=== PATIENT | female | born 1965 | race African-American/Black ===

== ENCOUNTER 2017-08-02 19:25 | Emergency (ER) | payer SELFPAY ==
[2017-08-02] MEDS ORDERED: HYDROcodone/Acetaminophen 5/325 mg Tablet ONE (19:56)
--- NOTE | 2017-08-02 20:22 | RAD ---
LEFT FOOT THREE VIEWS: 08/02/17 HISTORY: Foot pain and heel pain. There is some minimal bony change involving the medial side of the first metatarsal head. I cannot e xclude these changes being related to gout. Calcaneal spur at the insertion of the Achilles tendon i s noted. IMPRESSION: No acute findings. Other findings as noted above. POS: [facility]
== END 2017-08-02 20:52 | disposition home or self-care (01) ==
LOC: NAV ERS 19:25
DX: M76.62 Achilles tendinitis, left leg (principal); E78.5 Hyperlipidemia, unspecified; I25.10 Atherosclerotic heart disease of native coronary artery without angina pectoris; I10 Essential (primary) hypertension; E66.9 Obesity, unspecified; F17.210 Nicotine dependence, cigarettes, uncomplicated

== ENCOUNTER 2018-01-22 17:41 | Observation (INO) | payer SELFPAY ==
[2018-01-22] MEDS ORDERED: Sodium Chloride 0.9% 1,000 ML ONE ×2 (18:31→20:57)
[2018-01-22 18:34] LABS: #Basophils 0.1 thou/uL (0.0-0.2); #Eosinphils 0.1 thou/uL (0.0-0.7); #Lymphocytes 1.4 thou/uL (1.20-3.40); #Monocytes 0.5 thou/uL (0.11-0.59); #Neutrophils 3.2 thou/uL (1.40-6.50); %Basophils 2.2 % (0.0-1.0); %Eosinophils 1.3 % (0.0-10.0); %Lymphocytes 26.5 % (21.0-51.0); Hemoglobin 13.8 g/dL (12.0-16.0); Mean Corpuscular HGB CONC 31.6 g/dL (32.0-36.0); Mean Corpuscular Volume 88.7 fl (81.0-99.0); Platelet Count 218 thou/uL (130-400); Red Blood Cell (RBC) Count 4.94 mill/uL (4.20-5.40); White Blood Cell (WBC) Count 5.3 thou/uL (4.8-10.8)
[2018-01-22 18:47] LABS: ALT (SGPT) 21 U/L (8-55); AST (SGOT) 13 U/L (5-34); Alkaline Phosphatase 111 U/L (40-150); Anion Gap 22 mmol/L (10-20); BUN (Urea Nitrogen) 12 mg/dL (9.8-20.1); Bilirubin, Total 0.4 mg/dL (0.2-1.2); CK (CPK) 98 U/L (29-168); Calc. Creatinine Clearance 0 mL/min (70-130); Calcium 9.6 mg/dL (7.8-10.44); Carbon Dioxide 11 mmol/L (22-29); Chloride 100 mmol/L (98-107); Estimated GFR-MDRD 54; Globulin 3.6 g/dL (2.4-3.5); Protein, Total 7.6 g/dL (6.0-8.3); Sodium 129 mmol/L (136-145)
[2018-01-22 18:49] LABS: CKMB 3.7 ng/mL (0-6.6); Troponin I Less than 0.010 ng/mL (< 0.028)
[2018-01-22 18:50] LABS: Glucose 617 mg/dL (70-105)
[2018-01-22] MEDS ORDERED: Insulin Regular 300 UNITS/3 ML VIAL ONE (18:50)
--- NOTE | 2018-01-22 20:30 | CT ---
HEAD CT NONCONTRAST: 01/22/18 CLINICAL HISTORY: Emergency exam performed for dizziness and hyperglycemia. FINDINGS: There is no evidence of intracranial hemorrhage, mass effect, midline shift or ventriculomegaly. Ther e are basal ganglia calcifications bilaterally. There is no acute fluid level of the imaged paranasal sinuses. IMPRESSION: No acute intracranial abnormalities. POS: [facility]
--- NOTE | 2018-01-22 20:33 | RAD ---
FRONTAL VIEW CHEST: 01/22/18 CLINICAL HISTORY: Dizziness, hyperglycemia. FINDINGS: Mild enlargement of the cardiac silhouette and pulmonary vasculature. Prior right subclavian venous c atheter has been removed. No effusion or pneumothorax. Evidence of prior sternotomy. Mild bilateral p atchy perihilar opacity seen. IMPRESSION: Findings most consistent with fluid overload from CHF. Correlate clinically. Imaging followup may be obtained, as necessary. POS: [facility]
[2018-01-22 20:39] LABS: pH (venous) 7.29 (7.35-7.45)
[2018-01-22 20:40] LABS: Base Excess -10.3 mEq/L (-2 - +2)
[2018-01-22 20:41] LABS: Hemoglobin (Hb) 14.1 g/dL (11.7-16.0)
[2018-01-22 20:47] LABS: Anion Gap 18 mmol/L (10-20); BUN (Urea Nitrogen) 11 mg/dL (9.8-20.1); Calc. Creatinine Clearance 0 mL/min (70-130); Calcium 9.3 mg/dL (7.8-10.44); Carbon Dioxide 14 mmol/L (22-29); Chloride 106 mmol/L (98-107); Estimated GFR-MDRD 67; Glucose 332 mg/dL (70-105); Potassium 3.5 mmol/L (3.5-5.1); Sodium 134 mmol/L (136-145)
[2018-01-22 20:56] LABS: Bilirubin Small (Negative); Blood, Urine Small (Negative); Clarity Clear (Clear); Glucose, Urine (Dipstick) 500 mg/dL (Negative); Leukocyte Negative (Negative); Nitrite Negative (Negative); Protein, Urine (Dipstick) 30 mg/dL (Neg-Trace); Urobilinogen 0.2 mg/dL (0.2-1.0)
[2018-01-22 21:06] LABS: RBC/HPF 0-3 HPF (0-3)
[2018-01-22 21:07] LABS: Squamous Epithelial 0-3 HPF (0-3)
[2018-01-22] MEDS ORDERED: metFORMIN 500 MG TAB PO SCH (22:45)
[2018-01-22] MEDS ORDERED: Dextrose 5% in Water 1,000 ML IV PRN (22:50)
[2018-01-22] MEDS ORDERED: Dextrose 50% Abboject 50 ML SYRINGE IVP PRN (22:50)
[2018-01-22] MEDS: NS 0.9% w/ 20 MEQ KCL 1,000 ML IV SCH (23:31)
[2018-01-23 05:48] LABS: Band 2 % (5-11); Eosinophils 2 % (0-10); Hemoglobin 12.4 g/dL (12.0-16.0); Lymphocytes 33 % (21-51); MDiff Complete? YES; Mean Corpuscular HGB CONC 32.8 g/dL (32.0-36.0); Mean Corpuscular Hemoglobin 28.6 pg (27.0-31.0); Mean Corpuscular Volume 87.1 fl (81.0-99.0); Mean Platelet Volume 9.4 fL (7.4-10.4); Monocytes 9 % (0-10); Neutrophil 52 % (42-75); Platelet Count 186 thou/uL (130-400); RBC Distribution Width 11.9 % (11.5-14.5); Reactive Lymphocytes 2 % (0-10); Red Blood Cell (RBC) Count 4.35 mill/uL (4.20-5.40); White Blood Cell (WBC) Count 5.1 thou/uL (4.8-10.8)
[2018-01-23 05:52] LABS: Anion Gap 16 mmol/L (10-20); BUN (Urea Nitrogen) 12 mg/dL (9.8-20.1); Calc. Creatinine Clearance 104 mL/min (70-130); Calcium 9.1 mg/dL (7.8-10.44); Carbon Dioxide 14 mmol/L (22-29); Chloride 107 mmol/L (98-107); Estimated GFR-MDRD 75; Glucose 328 mg/dL (70-105); Potassium 3.8 mmol/L (3.5-5.1); Sodium 133 mmol/L (136-145)
[2018-01-23] MEDS: Insulin Regular 300 UNITS/3 ML VIAL SC PRN ×3 (06:46→17:29)
[2018-01-23] MEDS: metFORMIN 500 MG TAB PO SCH ×2 (08:03→17:27)
[2018-01-23] MEDS ORDERED: Prevnar 13-Val Conj/PF 0.5 ML SYRINGE IM ONE (09:00)
[2018-01-23] MEDS: NS 0.9% w/ 20 MEQ KCL 1,000 ML IV SCH ×2 (10:55→17:43)
[2018-01-23 14:31] VITALS: BMI 32.7
[2018-01-23] MEDS ORDERED: metFORMIN 500 MG TAB PO SCH (17:15)
[2018-01-23 20:23] VITALS: BP 110/61; TEMP 98.1
[2018-01-23] MEDS ORDERED: Simvastatin 40 MG TAB PO SCH (21:00)
--- NOTE | 2018-01-24 00:30 | DIS ---
DATE OF ADMISSION: 01/22/2018 DATE OF DISCHARGE: 01/23/2018 PRINCIPAL DIAGNOSIS: New onset diabetes mellitus. SECONDARY DIAGNOSES: 1. Coronary artery disease, status post coronary artery bypass grafting x1 of the left anterior desc ending with left internal mammary artery. 2. Hypertension. 3. Dyslipidemia. 4. Longstanding history of noncompliance. COMPLICATIONS: None. ADVERSE REACTIONS: None. PROCEDURES: None. CONSULTATIONS: None. HOSPITAL COURSE: The patient was admitted yesterday with complaints of lightheadedness and dizziness . She was evaluated in the emergency room, was noticed to have a blood sugar greater than 500. She was treated with IV fluids and IV insulin. She responded well. Blood sugars came down to 300. Anio n gap was normal. Urine apparently was tested and was ketone negative according to the ER physician, it was felt that, best to admit her to the hospital overnight for observation on sliding scale, star lalo her on metformin and monitor. She had education from the dietitian today along with the nurses o n diet, activity, and compliance with medications. I had a long discussion with her. She assured me that she will be compliant with medications. Her significant other is in the room. I advised them, they need to walk at least 30 minutes a day. We will follow the dietitian's recommendations. Check her blood sugar 3 times a day. I am going to add Amaryl 1 mg b.i.d. to her metformin and then she i s to follow up with her new primary care physician. She apparently has an appointment at the [facility] in the next 3-5 days. She is to take her blood sugar glucometer with her along with her medi cations. She was advised to come back to the emergency room with any issues. PAST SURGICAL HISTORY: 1. Coronary artery bypass grafting. 2. Cholecystectomy. 3. History of . HOME MEDICATIONS: She apparently was taking Imdur 60 mg daily, Zocor 40 mg daily, losartan 25 mg alison ly, and aspirin 325 mg daily. FAMILY HISTORY: She states that she quit smoking about a couple of weeks ago, I am not sure how true that is. She drinks occasional wine. No recreational drug use. ALLERGIES: PENICILLIN. REVIEW OF SYSTEMS: Cardiovascular: Denies any chest pain, shortness of breath, palpitations, PND, o rthopnea, or pedal edema. Respiratory: Denies any chronic cough, expectoration, or pleuritic type c hest pain. Gastrointestinal: Denies any nausea, vomiting, diarrhea, constipation, hematemesis, jennifer na, or hematochezia. Genitourinary: Denies any frequency, urgency, dysuria or hematuria. Central N ervous System: The lightheadedness has resolved. She did have it when she came to the ER. Denies a ny focal numbness or weakness. Musculoskeletal: Occasional joint pains. Skin: No rash or any darwin rning lesions. PHYSICAL EXAMINATION: GENERAL: A pleasant, overweight 52-year-old -[place] female who is resting comfortably in no apparent distress. Her significant other is in the room. She is alert, awake, and oriented x3. VITAL SIGNS: She is afebrile, heart rate 71, respirations 21, oxygen saturation 97% on room air, blo od pressure 101/72. HEENT: Normocephalic, atraumatic. Pupils equal and reactive to light and accommodation. No JVD, th yromegaly, cervical adenopathy, throat exudates, no carotid bruits. CARDIOVASCULAR: S1, S2 plus. RESPIRATORY: Normal vesicular breath sounds. ABDOMEN: Soft, obese, nontender. Bowel sounds heard in all quadrants. EXTREMITIES: Without cyanosis or clubbing. Peripheral pulses are palpable. CENTRAL NERVOUS SYSTEM: Grossly nonfocal. LABORATORY DATA: Laboratory values are done this morning shows a white count of 5.1, H and H is 12.4 and 37.9. Sodium 133, potassium 3.8, BUN and creatinine 12 and 1.95, blood sugars at 303, 332, 328, 476, and 326. Urine yesterday had minimal ketones, but normal anion gap. DISCHARGE INSTRUCTIONS: 1. She has been advised to follow an 1800 calorie heart healthy, low sodium diet. 2. 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 3. Check her blood sugar 3 times a day. 4. Discharge medications will be her home medications plus metformin 500 mg b.i.d., and Amaryl 1 mg b.i.d. She is to take these with food. I told her the risks of diarrhea and low blood sugars with t hese medications. The other home medications that she is to continue Imdur 60 mg daily, Cozaar 25 mg daily, Zocor 40 mg at bedtime. All questions answered. Her prescriptions have been sent to [facility] and a prescription for glucomete r has been hand written and given to them in person.
[2018-01-24] MEDS ORDERED: Glimepiride 2 MG TAB PO SCH (08:00)
[2018-01-24] MEDS ORDERED: metFORMIN 500 MG TAB PO SCH (08:00)
[2018-01-24] MEDS ORDERED: Losartan 25 MG TAB PO SCH (09:00)
== END 2018-01-23 20:40 | disposition home or self-care (01) ==
LOC: NAV ERS 17:41 → NAV ACUTE 22:06
PROVIDERS: ADMIT Internal Medicine; ATTEND Internal Medicine
DX: E11.9 Type 2 diabetes mellitus without complications (principal); I25.10 Atherosclerotic heart disease of native coronary artery without angina pectoris; I10 Essential (primary) hypertension; E78.5 Hyperlipidemia, unspecified; Z91.19 Patient's noncompliance with other medical treatment and regimen; Z88.0 Allergy status to penicillin; Z79.82 Long term (current) use of aspirin; Z79.899 Other long term (current) drug therapy; Z95.1 Presence of aortocoronary bypass graft; Z90.49 Acquired absence of other specified parts of digestive tract
CPT/HCPCS: 36415; 36416; 70450; 71045; 80048; 80053; 81003; 81015; 82553; 82805; 84484; 85025; 90471; 90670; 93005; 96361; 96374; G0009; G0378; J1815; J7050

== ENCOUNTER 2018-07-05 19:06 | Emergency (ER) | payer SELFPAY ==
[2018-07-05] MEDS ORDERED: Ketorolac Tromethamine 30 MG/ML VIAL ONE (19:41)
== END 2018-07-05 20:41 | disposition home or self-care (01) ==
LOC: NAV ERS 19:06
DX: G89.29 Other chronic pain (principal); M25.572 Pain in left ankle and joints of left foot; E11.40 Type 2 diabetes mellitus with diabetic neuropathy, unspecified; I25.10 Atherosclerotic heart disease of native coronary artery without angina pectoris; E78.5 Hyperlipidemia, unspecified; E66.9 Obesity, unspecified; Z79.899 Other long term (current) drug therapy; Z79.84 Long term (current) use of oral hypoglycemic drugs
CPT/HCPCS: 36416; 96372; J1885

== ENCOUNTER 2019-12-12 16:44 | Emergency (ER) | payer SELFPAY | END 2019-12-12 17:20 | disposition home or self-care (01) | LOC: NAV ERS 16:44 | DX: K02.9 Dental caries, unspecified (principal); I25.10 Atherosclerotic heart disease of native coronary artery without angina pectoris; E11.9 Type 2 diabetes mellitus without complications; E78.5 Hyperlipidemia, unspecified; I10 Essential (primary) hypertension; E66.9 Obesity, unspecified; Z79.84 Long term (current) use of oral hypoglycemic drugs; Z79.899 Other long term (current) drug therapy; Z79.82 Long term (current) use of aspirin | CPT/HCPCS: 99282 ==

== ENCOUNTER 2020-04-23 11:05 | Emergency (ER) | payer SELFPAY ==
[2020-04-23] MEDS ORDERED: Aspirin Chewable 81 MG TAB ONE (11:18)
[2020-04-23] MEDS ORDERED: Nitroglycerin 0.4 MG TAB (25 Tab Bottle) ONE (11:18)
[2020-04-23] MEDS ORDERED: Sodium Chloride 0.9% 1,000 ML ONE (11:25)
[2020-04-23 11:26] LABS: Hemoglobin 14.2 g/dL (12.0-16.0); Mean Corpuscular Hemoglobin 28.1 pg (27.0-31.0); Mean Corpuscular Volume 91.4 fL (78.0-98.0); Red Blood Cell (RBC) Count 5.06 mill/uL (4.20-5.40); White Blood Cell (WBC) Count 8.7 thou/uL (4.8-10.8)
[2020-04-23 11:27] LABS: #Basophils 0.1 thou/uL (0.0-0.2); #Eosinphils 0.1 thou/uL (0.0-0.7); #Lymphocytes 2.5 thou/uL (1.20-3.40); #Monocytes 0.5 thou/uL (0.11-0.59); #Neutrophils 5.5 thou/uL (1.40-6.50); %Basophils 1.1 % (0.0-1.0); %Eosinophils 0.7 % (0.0-10.0); %Lymphocytes 29.3 % (21.0-51.0); %Monocytes 5.6 % (0.0-10.0); %Neutrophils 63.4 % (42.0-75.0); Mean Corpuscular HGB CONC 30.7 g/dL (32.0-36.0); Mean Platelet Volume 9.2 fL (7.4-10.4); Platelet Count 240 thou/uL (130-400); RBC Distribution Width 12.7 % (11.5-14.5)
--- NOTE | 2020-04-23 11:38 | RAD ---
PORTABLE CHEST ONE VIEW: HISTORY: Chest pain. COMPARISON: 01/22/2018 FINDINGS: Postop midline sternotomy. Heart size is normal. Lungs are clear. IMPRESSION: No significant acute intrathoracic disease. Stable from prior study. POS: [facility]
[2020-04-23 11:44] LABS: PTT 33.6 sec (22.9-36.1); Prothrombin Time 13.6 sec (12.0-14.7)
[2020-04-23 11:53] LABS: ALT (SGPT) 34 U/L (8-55); AST (SGOT) 66 U/L (5-34); Albumin 4.2 g/dL (3.5-5.0); Alkaline Phosphatase 103 U/L (40-110); Anion Gap 17 mmol/L (10-20); BUN (Urea Nitrogen) 7 mg/dL (9.8-20.1); Bilirubin, Total 0.6 mg/dL (0.2-1.2); Calc. Creatinine Clearance 0 mL/min (70-130); Calcium 10.3 mg/dL (7.8-10.44); Carbon Dioxide 20 mmol/L (22-29); Chloride 104 mmol/L (98-107); Estimated GFR-MDRD Greater than 90; Globulin 3.2 g/dL (2.4-3.5); Glucose 142 mg/dL (70-105); Potassium 4.2 mmol/L (3.5-5.1); Protein, Total 7.4 g/dL (6.0-8.3); Sodium 137 mmol/L (136-145)
[2020-04-23] MEDS ORDERED: Nitroglycerin 2% Ointment 1 INCH/1 GM Packet ONE ×2 (12:05→12:06)
[2020-04-23 12:36] LABS: CKMB 65.5 ng/mL (0-6.6)
== END 2020-04-23 12:08 | disposition short-term general hospital (02) ==
LOC: NAV ERS 11:05
DX: I21.19 ST elevation (STEMI) myocardial infarction involving other coronary artery of inferior wall (principal); I21.29 ST elevation (STEMI) myocardial infarction involving other sites; I25.10 Atherosclerotic heart disease of native coronary artery without angina pectoris; E11.9 Type 2 diabetes mellitus without complications; E78.5 Hyperlipidemia, unspecified; I10 Essential (primary) hypertension; E66.9 Obesity, unspecified; Z79.899 Other long term (current) drug therapy; Z79.84 Long term (current) use of oral hypoglycemic drugs; Z79.82 Long term (current) use of aspirin
CPT/HCPCS: 71045; 80053; 82553; 84484; 85025; 85610; 85730; 93005; J7050

== ENCOUNTER 2022-09-11 17:14 | Emergency (ER) | payer SELFPAY ==
[2022-09-11] MEDS ORDERED: Morphine 4 MG/ML VIAL ONE (17:47)
[2022-09-11 17:52] LABS: #Basophils 0.1 thou/uL (0.0-0.2); #Eosinphils 0.1 thou/uL (0.0-0.7); #Lymphocytes 2.8 thou/uL (1.20-3.40); #Monocytes 0.5 thou/uL (0.11-0.59); #Neutrophils 3.7 thou/uL (1.40-6.50); %Basophils 0.9 % (0.0-1.0); %Eosinophils 1.6 % (0.0-10.0); %Lymphocytes 39.2 % (21.0-51.0); %Monocytes 7.2 % (0.0-10.0); %Neutrophils 51.2 % (42.0-75.0); Hemoglobin 13.7 g/dL (12.0-16.0); Mean Corpuscular HGB CONC 32.4 g/dL (32.0-36.0); Mean Corpuscular Hemoglobin 29.4 pg (27.0-31.0); Mean Corpuscular Volume 90.8 fl (78.0-98.0); Mean Platelet Volume 8.3 fL (7.4-10.4); Platelet Count 246 10x3/uL (130-400); Red Blood Cell (RBC) Count 4.65 mill/uL (4.20-5.40); White Blood Cell (WBC) Count 7.2 10x3/uL (4.8-10.8)
[2022-09-11 18:12] LABS: ALT (SGPT) 31 U/L (8-55); AST (SGOT) 21 U/L (5-34); Albumin 4.2 g/dL (3.5-5.0); Alkaline Phosphatase 81 U/L (40-110); Anion Gap 15 mmol/L (10-20); BUN (Urea Nitrogen) 23 mg/dL (9.8-20.1); Bilirubin, Total 0.2 mg/dL (0.2-1.2); CK (CPK) 87 U/L (29-168); Calc. Creatinine Clearance 0 mL/min (70-130); Calcium 9.9 mg/dL (7.8-10.44); Carbon Dioxide 20 mmol/L (22-29); Chloride 109 mmol/L (98-107); Estimated GFR 83; Globulin 3.3 g/dL (2.4-3.5); Glucose 126 mg/dL (70-105); Lipase 32 U/L (8-78); Potassium 4.1 mmol/L (3.5-5.1); Protein, Total 7.5 g/dL (6.0-8.3); Sodium 140 mmol/L (136-145)
[2022-09-11] MEDS ORDERED: Morphine 2 MG/ML VIAL ONE (18:32)
== END 2022-09-11 18:48 | disposition home or self-care (01) ==
LOC: NAV ERS 17:14
DX: R52 Pain, unspecified (principal); E11.9 Type 2 diabetes mellitus without complications; E78.00 Pure hypercholesterolemia, unspecified; I10 Essential (primary) hypertension; I25.10 Atherosclerotic heart disease of native coronary artery without angina pectoris; Z79.84 Long term (current) use of oral hypoglycemic drugs; Z79.899 Other long term (current) drug therapy; Z79.82 Long term (current) use of aspirin
CPT/HCPCS: 71045; 80053; 82550; 83690; 84484; 85025; 93005; 96374; J2270

== ENCOUNTER 2023-09-26 23:30 | Emergency (ER) | payer OTHER ==
[2023-09-26] MEDS ORDERED: Ibuprofen 200 MG TAB ONE (23:53)
[2023-09-27 00:08] LABS: #Lymphocytes 0.9 thou/uL (1.20-3.40); #Monocytes 0.5 thou/uL (0.11-0.59); #Neutrophils 3.3 thou/uL (1.40-6.50); %Basophils 0.9 % (0.0-1.0); %Eosinophils 0.1 % (0.0-10.0); %Lymphocytes 18.3 % (21.0-51.0); %Neutrophils 70.6 % (42.0-75.0); Hemoglobin 13.5 g/dL (12.0-16.0); Mean Corpuscular HGB CONC 33.7 g/dL (32.0-36.0); Mean Corpuscular Hemoglobin 29.3 pg (27.0-31.0); Mean Platelet Volume 8.6 fL (7.4-10.4); Platelet Count 159 10x3/uL (130-400); RBC Distribution Width 12.7 % (11.5-14.5); White Blood Cell (WBC) Count 4.6 10x3/uL (4.8-10.8)
[2023-09-27 00:18] LABS: ALT (SGPT) 49 U/L (8-55); AST (SGOT) 52 U/L (5-34); Albumin 3.9 g/dL (3.5-5.0); Alkaline Phosphatase 74 U/L (40-110); Anion Gap 15 mmol/L (10-20); BUN (Urea Nitrogen) 11 mg/dL (9.8-20.1); Bilirubin, Total 0.3 mg/dL (0.2-1.2); Calcium 9.3 mg/dL (7.8-10.44); Carbon Dioxide 22 mmol/L (22-29); Chloride 102 mmol/L (98-107); Globulin 3.7 g/dL (2.4-3.5); Glucose 123 mg/dL (70-105); Potassium 3.7 mmol/L (3.5-5.1); Protein, Total 7.6 g/dL (6.0-8.3); Sodium 135 mmol/L (136-145)
[2023-09-27 00:31] LABS: SARS-CoV-2 NAA Rapid Test Not Detected (NotDetected)
[2023-09-27] MEDS ORDERED: Sodium Chloride 0.9% 500 ML ONE (00:49)
[2023-09-27 01:00] LABS: Calc. Creatinine Clearance 0 mL/min (70-130); Estimated GFR 84
== END 2023-09-27 02:02 | disposition left against medical advice (07) ==
LOC: NAV ERS 23:30
DX: J10.1 Influenza due to other identified influenza virus with other respiratory manifestations (principal); E11.9 Type 2 diabetes mellitus without complications; I10 Essential (primary) hypertension; Z20.822 Contact with and (suspected) exposure to COVID-19
CPT/HCPCS: 71046; 80053; 83605; 85025; 87040; 87804; 93005; 94760; 96360; J7030; U0002

== ENCOUNTER 2024-03-15 08:39 | Emergency (ER) | payer OTHER ==
[2024-03-15] MEDS ORDERED: HYDROcodone/Acetaminophen 10/325 mg Tablet ONE (09:19)
== END 2024-03-15 10:11 | disposition home or self-care (01) ==
LOC: NAV ERS 08:39
DX: K08.89 Other specified disorders of teeth and supporting structures (principal); E11.9 Type 2 diabetes mellitus without complications; I10 Essential (primary) hypertension; E78.00 Pure hypercholesterolemia, unspecified; Z79.84 Long term (current) use of oral hypoglycemic drugs; Z79.899 Other long term (current) drug therapy
CPT/HCPCS: 99282